=== PATIENT | female | born 1995 | race Caucasian/White ===

== ENCOUNTER 2018-04-15 20:21 | Emergency (ER) | payer OTHER ==
--- NOTE | 2018-04-15 22:12 | EDPHY ---
H & P Stated Complaint: SUDDEN ONSET R SIDED BACK PAIN/CHX CHRONIC BACK PAIN X 3 YRS Time Seen by Provider: 04/15/18 21:48 HPI/ROS: Chief Complaint: Back pain HPI: 22-year-old woman with a history of chronic back pain for the last 3 years had sudden onset of a sharp pain in her right upper back earlier this evening. Pain was severe and caused her to elapsed to the ground out of pain. She has also been having worsening left-sided back pain radiating down the back of her left leg. She is scheduled for an MRI but has been unable to arrange it. She has been able to ambulate since but has continuing pain. She is not taking any medicine for it. She denies any numbness or weakness. No fevers or chills. Denies any new injuries. ROS: 10 point Review of Systems is negative except as noted in the HPI. PMH: Chronic back pain Social History: No smoking, no alcohol, no recreational drug use Family History: non-contributory Physical Exam: Gen: Awake, Alert, No Distress HEENT: Nose: no rhinorrhea Eyes: PERRLA, EOMI Mouth: Moist mucosa Neck: Supple, no JVD Chest: nontender, lungs clear to auscultation Heart: S1, S2 normal, no murmur Abd: Soft, non-tender, no guarding Back: no CVA tenderness, no midline tenderness moderate bilateral paraspinal spasm noted Ext: no edema, non-tender Skin: no rash Neuro: CN II-XII intact, Sensation grossly intact, Strength 5/5 in bilateral upper and lower extremities, she has 2+ patellar reflexes. Toes are downgoing. She has got normal dorsal and plantar flexion strength. She is got normal proximal and distal leg strength with normal straight leg raise and is unable to resist me pushing her legs to the bed. - Personal History LMP (Females 10-55): 8-14 Days Ago Current Tetanus Diphtheria and Acellular Pertussis (TDAP): Yes - Medical/Surgical History Hx Asthma: No Hx Chronic Respiratory Disease: No Hx Diabetes: No Hx Cardiac Disease: No Hx Renal Disease: No Hx Cirrhosis: No Hx Alcoholism: No Hx HIV/AIDS: No Hx Splenectomy or Spleen Trauma: No Other PMH: BACK PAIN - Social History Smoking Status: Never smoked Constitutional: Initial Vital Signs Temperature (C) 37.2 C 04/15/18 20:30 Heart Rate 97 04/15/18 20:30 Respiratory Rate 20 04/15/18 20:30 Blood Pressure 113/89 H 04/15/18 20:30 O2 Sat (%) 93 04/15/18 20:30 O2 Delivery Mode Room Air Allergies/Adverse Reactions: No Known Allergies Allergy (Unverified 04/15/18 20:32) Home Medications: Medication Instructions Recorded NK [No Known Home Meds] 04/15/18 Medical Decision Making ED Course/Re-evaluation: 22-year-old woman presenting with exacerbation of her chronic back pain. She is completely neurologically intact. She does not have any red flags for acute cauda equina syndrome, epidural abscess, or any other acute neurosurgical emergency. She has already seen a back specialist and has arranged for an MRI her MRI here but I have explained that because of her presenting symptoms it is uncertain whether the insurance company will be willing to remembers her for an MRI of the emergency department. I have explained that do not see any evidence of acute neurosurgical emergency that requires emergent MRI in the middle the night. She has an MRI ordered and is arranging to have it performed early next week. She is looking to not have the MRI done at this time as she understands it will not affect her care. She does not want any further pain medicine at this time. I have encouraged her to use ibuprofen, acetaminophen, ice and exercise. She will follow up with her back specialist in 2-3 days, returning for any worsening symptoms. Departure - Departure Disposition: Home, Routine, Self-Care Clinical Impression: Back pain Condition: Good Instructions: Chronic Back Pain (ED), Back Pain (ED), Lower Back Exercises (ED) Additional Instructions: Follow up with primary care physician in your back specialist in 3-4 days for further evaluation. Return emergency department for uncontrolled pain, persisting weakness, fever, or any other concerns. Referrals: NONE *PRIMARY CARE P,. [Primary Care Provider] - As per Instructions
[2018-04-15 22:22] VITALS: BP 115/74
== END 2018-04-15 22:22 | disposition home or self-care (01) ==
DX: M54.9 Dorsalgia, unspecified (principal); G89.29 Other chronic pain